=== PATIENT | male | born 1960 | race Caucasian/White ===

== ENCOUNTER 2019-05-16 07:56 | Day surgery (SDC) | payer BC ==
[2019-05-10 15:22] VITALS: BMI 28.8
[~2019-05-16 07:56] MED LIST: LACTATED RINGERS 1,000 ML IV SCH; LIDOCAINE 1% 20 ML VIAL (10MG/ML) FOR IV START INTRADERMA PRN
[2019-05-16 08:24] VITALS: RESP 16; TEMP 97.6
[2019-05-16] MEDS ORDERED: PROPOFOL 10 MG/ML 20 ML VIAL IV ONE (09:15)
--- NOTE | 2019-05-16 09:20 | P.GSHP ---
History of Present Illness H&P Date: 05/16/19 Chief Complaint: GI bleed This is a 59-year-old male presents today for colonoscopy. Patient has issues with GI bleed. He states he may have hemorrhoids. Past Medical History Past Medical History: GERD/Reflux, Hyperlipidemia, Hypertension Additional Past Medical History / Comment(s): TREMORS History of Any Multi-Drug Resistant Organisms: None Reported Past Surgical History: Coronary Bypass/CABG, Hernia Repair Additional Past Surgical History / Comment(s): QUAD. BYPASS ABOUT 11 YEARS AGO. VASECTOMY Past Anesthesia/Blood Transfusion Reactions: No Reported Reaction Smoking Status: Never smoker - Past Family History Father Additional Family Medical History / Comment(s): AT AGE 63 OF HEART ATTACK Medications and Allergies Home Medications Medication Instructions Recorded Confirmed Type Aspirin [Adult Low Dose Aspirin EC] 81 mg PO DAILY 05/10/19 05/16/19 History LORazepam [Ativan] 1 mg PO DAILY PRN 05/10/19 05/16/19 History Nadolol 40 mg PO DAILY 05/10/19 05/10/19 History Omeprazole 20 mg PO DAILY 05/10/19 05/10/19 History Sildenafil Citrate [Viagra] 50 mg PO ONCE PRN 05/10/19 05/16/19 History Simvastatin [Zocor] 20 mg PO DAILY 05/10/19 05/16/19 History amLODIPine BESYLATE 5 mg PO DAILY 05/10/19 05/16/19 History Allergies Allergy/AdvReac Type Severity Reaction Status Date / Time No Known Allergies Allergy Verified 05/10/19 15:09 Surgical - Exam Vital Signs Temp Pulse Resp BP Pulse Ox 97.6 F 47 L 16 172/97 96 05/16/19 08:18 05/16/19 08:18 05/16/19 08:18 05/16/19 08:18 05/16/19 08:18 - General well developed, well nourished, no distress - Eyes PERRL - ENT normal pinna - Neck no masses - Respiratory normal expansion - Cardiovascular Rhythm: regular - Abdomen Abdomen: soft, non tender Assessment and Plan Assessment: GI bleed. We'll perform colonoscopy.
--- NOTE | 2019-05-16 09:35 | P.OP ---
Date of Procedure: 05/16/19 Preoperative Diagnosis: GI bleed Postoperative Diagnosis: External hemorrhoids Left colon polyp Rectal polyp Procedure(s) Performed: Colonoscopy Anesthesia: MAC Surgeon: Lokesh Ferguson Pathology: other (Rectal polyp, left colon polyp) Condition: stable Disposition: PACU Description of Procedure: The patient's placed on the endoscopy table in the lateral position. He received IV sedation. Digital rectal exam was performed which revealed a few external hemorrhage. The flexible colonoscope was then placed patient anus passed rotator colon. The ileocecal valve sutures. The cecum appeared normal. The ascending colon appeared normal. The transverse colon as well. In the descending colon there was a peduncular polyp was removed with snare. The scope was brought back and the remainder of the descending colon and the sigmoid appeared normal. In the rectum there was a polyp seen this removed with snare and forcep. Scope was withdrawn from the patient in the anus there was some external hemorrhoids noted. There is no evidence of any active bleeding. It is presumed that his bleeding is due to his external hemorrhoids.
[2019-05-16 10:31] VITALS: BP 165/100; PULSE 53
== END 2019-05-16 10:42 | disposition home or self-care (01) ==
LOC: ORWHC2ENDO 07:56
PROVIDERS: ATTEND Surgery
DX: K64.4 Residual hemorrhoidal skin tags (principal); D12.4 Benign neoplasm of descending colon; D12.5 Benign neoplasm of sigmoid colon; D12.8 Benign neoplasm of rectum; E78.5 Hyperlipidemia, unspecified; I10 Essential (primary) hypertension; K21.9 Gastro-esophageal reflux disease without esophagitis; Z79.82 Long term (current) use of aspirin; Z95.1 Presence of aortocoronary bypass graft; Z79.899 Other long term (current) drug therapy
CPT/HCPCS: 88305; 45385; J2704

== ENCOUNTER → 2019-07-21 | Outpatient (CLI) | payer BC ==
--- NOTE | 2019-07-27 11:21 | CT ---
EXAMINATION TYPE: CT chest w con DATE OF EXAM: 07/21/2019 COMPARISON: 09/10/[address] chest HISTORY: pulmonary nodules CT DLP: 550.5 mGycm, Automated exposure control for dose reduction was used. CONTRAST: Performed injected with 100 mL of Isovue 300. TECHNIQUE: Axial images were obtained at 5 mm thick sections. Reconstructed images are reviewed on [employer] computer in the coronal plane. FINDINGS: Portion of the thyroid visualized is normal. No suspicious lung nodules or focal infiltrates are present. There is some pneumonitis changes at the left lung base. This appears improved from comparison. There is a 1.3 x 1.6 cm density in the posterior lateral left lung base which may have some central l ower density on previous appears to correspond to the region of a prior nodule which is smaller on th e current exam. Series 4 image 32. The frontal diagnosis could include atelectasis, soft tissue nodul e such as neoplasm, scarring. There is some mild pleural thickening along the inferolateral left base . No enlarged mediastinal or hilar adenopathy is evident. The ascending aorta diameter at the level o f the main pulmonary artery is 3.9 cm. The main pulmonary artery diameter at the bifurcation is 3.[address] sections are obtained through the upper abdomen. There is a 2.3 cm cyst in the posterior l ateral superior pole left kidney measuring 8 Hounsfield units. IMPRESSIONS: 1. 1.3 x 1.6 cm density may be a peripheral based density located at the previous abnormality on the 2009 comparison. This is smaller than prior.
== END | disposition home or self-care (01) ==
LOC: RADCTMAIN 16:23
PROVIDERS: ATTEND Internal Medicine Critical Care Medicine
DX: R91.1 Solitary pulmonary nodule (principal)
CPT/HCPCS: 71260; 36415; Q9967

== ENCOUNTER → 2021-09-01 | Outpatient (CLI) | payer BC ==
[2021-09-01 20:45] LABS: Luteinizing Hormone 3.7 mIU/mL; Prolactin 4.8 ng/mL (2.100-17.700); Prostate Specific Antigen 1.8 ng/mL (0.00-4.50)
== END | disposition home or self-care (01) ==
LOC: LABWHC1 12:07
PROVIDERS: ATTEND Urology
DX: R35.1 Nocturia (principal)
CPT/HCPCS: 36415; 83002; 84146; 84153; 84402; 84403

== ENCOUNTER → 2022-06-11 | Outpatient (CLI) | payer BC ==
--- NOTE | 2022-06-11 15:06 | XR ---
EXAMINATION TYPE: XR shoulder complete LT DATE OF EXAM: 06/11/2022 CLINICAL HISTORY: Pain. TECHNIQUE: Three views of the left shoulder are obtained. COMPARISON: None. FINDINGS: There is no acute fracture/dislocation evident in the left shoulder. Moderate to severe na rrowing with mild to moderate spurring at acromioclavicular joint. Mild to moderate narrowing and mi ld spurring at glenohumeral joint. Type III acromion with prominent spur from the inferior lateral as pect of the acromion. Partial visualization of post-CABG changes. IMPRESSION: As above.
== END | disposition home or self-care (01) ==
LOC: RADXRMAIN 14:41
PROVIDERS: ATTEND Internal Medicine
DX: M25.812 Other specified joint disorders, left shoulder (principal); M25.712 Osteophyte, left shoulder

== ENCOUNTER → 2024-01-20 | Outpatient (CLI) | payer MEDICARE ==
[2024-01-20 16:35] LABS: African American GFR (CKD) 80 (>60 ml/min/1.73 sqM); Blood Urea Nitrogen 18 mg/dL (9-20); Non-African American GFR(CKD) 69 (>60 ml/min/1.73 sqM)
[2024-01-20 19:34] LABS: HCT 38.7 % (39.0-53.0); Hypochromasia Moderate; MCH 27.1 pg (25.0-35.0); MCV 87.4 fL (80.0-100.0); Mean Platelet Volume 9.5; Platelet Count 232 k/uL (150-450); RBC 4.43 m/uL (4.30-5.90); RDW 15.2 % (11.5-15.5); WBC 4.9 k/uL (3.8-10.6)
[2024-01-20 19:36] LABS: ALT 18 U/L (4-49); AST 32 U/L (17-59); Albumin/Globulin Ratio 1.4; Alkaline Phosphatase 66 U/L (38-126); Anion Gap 5 mmol/L; Carbon Dioxide 24 mmol/L (22-30); Chloride 110 mmol/L (98-107); Globulin 2.9 g/dL; Glucose 100 mg/dL (74-99); Potassium 3.9 mmol/L (3.5-5.1); Sodium 139 mmol/L (137-145); Total Bilirubin 0.7 mg/dL (0.2-1.3); Total Protein 6.9 g/dL (6.3-8.2)
--- NOTE | 2024-01-21 08:09 | CT ---
EXAMINATION TYPE: CT iac w con DATE OF EXAM: 01/20/2024 COMPARISON: None HISTORY: hearing loss CT DLP: 332 mGycm Automated exposure control for dose reduction was used. CONTRAST: CT scan of the IACs is performed with IV Contrast, patient injected with 100 mL of Isovue 300. FINDINGS: The external auditory canals are patent bilaterally. Mastoid air cells show no evidence of abnormal opacification bilaterally. The middle ear ossicles are symmetric and unremarkable. There is no evidence of suspicious surrounding soft tissue density to suggest cholesteatoma. The scutum is preserved bilaterally. The cochlea and the semicircular canals are symmetric and unremarkable. Ves tibular aqueduct and internal carotid canal appear unremarkable. Temporomandibular joints are mainta ined bilaterally. IMPRESSION: No significant abnormality seen to account for patient's symptoms.
== END | disposition home or self-care (01) ==
LOC: RADCTMAIN 15:13
PROVIDERS: ATTEND Otolaryngology
DX: Z13.9 Encounter for screening, unspecified (principal); H91.90 Unspecified hearing loss, unspecified ear
CPT/HCPCS: 80053; 84443; 85027; 84403; 70481; 36415; Q9967

== ENCOUNTER 2024-07-19 13:04 | Emergency (ER) | payer MEDICARE ==
[2024-07-19 13:16] VITALS: RESP 16
--- NOTE | 2024-07-19 13:34 | ED ---
General Adult HPI - General Chief complaint: Extremity Injury, Upper Stated complaint: Foreign object in L hand Time Seen by Provider: 07/19/24 13:26 Source: patient, RN notes reviewed, old records reviewed Mode of arrival: ambulatory Limitations: no limitations - History of Present Illness Initial comments: 64-year-old male with fishhook to the left middle finger distal phalanx. This occurred just prior to arrival. Patient accidentally lodged a large fishing lure into his hand. He was able to cut the majority of the lure off. Patient requires tetanus prophylaxis - Related Data Home Medications Medication Instructions Recorded Confirmed Aspirin [Adult Low Dose Aspirin EC] 81 mg PO DAILY 05/10/19 05/16/19 LORazepam [Ativan] 1 mg PO DAILY PRN 05/10/19 05/16/19 Omeprazole 20 mg PO DAILY 05/10/19 05/10/19 Sildenafil Citrate [Viagra] 50 mg PO ONCE PRN 05/10/19 05/16/19 Simvastatin [Zocor] 20 mg PO DAILY 05/10/19 05/16/19 amLODIPine BESYLATE 5 mg PO DAILY 05/10/19 05/16/19 nadoloL [Nadolol] 40 mg PO DAILY 05/10/19 05/10/19 Previous Rx's Medication Instructions Recorded Cephalexin [Keflex] 500 mg PO Q6HR 20 Days #5 cap 07/19/24 Allergies Allergy/AdvReac Type Severity Reaction Status Date / Time No Known Allergies Allergy Verified 05/10/19 15:09 Review of Systems ROS Statement: Those systems with pertinent positive or pertinent negative responses have been documented in the HPI. ROS Other: All systems not noted in ROS Statement are negative. Past Medical History Past Medical History: GERD/Reflux, Hyperlipidemia, Hypertension Additional Past Medical History / Comment(s): TREMORS History of Any Multi-Drug Resistant Organisms: None Reported Past Surgical History: Coronary Bypass/CABG, Hernia Repair Additional Past Surgical History / Comment(s): QUAD. BYPASS ABOUT 11 YEARS AGO. VASECTOMY Past Anesthesia/Blood Transfusion Reactions: No Reported Reaction Past Psychological History: Anxiety Past Alcohol Use History: Occasional Past Drug Use History: None Reported - Past Family History Father Additional Family Medical History / Comment(s): AT AGE 63 OF HEART ATTACK General Exam Limitations: no limitations General appearance: alert, in no apparent distress Head exam: Present: atraumatic, normocephalic Eye exam: Present: normal appearance Neck exam: Present: normal inspection Respiratory exam: Present: normal lung sounds bilaterally Cardiovascular Exam: Present: regular rate, normal rhythm GI/Abdominal exam: Absent: distended Extremities exam: Present: other (Fishing hook in the left middle finger distal phalanx) Course Vital Signs 07/19/24 13:13 Temperature 97.6 F Pulse Rate 81 Respiratory 16 Rate Blood Pressure 139/81 O2 Sat by Pulse 100 Oximetry Procedures - Forgein Body Removal Soft Tissue Consent Obtained: verbal consent Site: hand Anesthetic Used: lidocaine 1% Amount (mLs): 3 Foreign Body Suspected: Fish Hook Foreign Body Removed: yes Foreign Body Removal Technique: Instrumentation Patient Tolerated Procedure: well Additional Comments: required small incision to remove fishhook Medical Decision Making - Medical Decision Making Was pt. sent in by a medical professional or institution (, [facility], [facility], urgent care, hospital, or fpc...) When possible be specific @ -No Did you speak to anyone other than the patient for history (EMS, parent, family, police, friend...)? What history was obtained from this source @ -No Did you review nursing and triage notes (agree or disagree)? Why? @ -I reviewed and agree with nursing and triage notes Were old charts reviewed (outside hosp., previous admission, EMS record, old EKG, old radiological studies, urgent care reports/EKG's, fpc records)? Report findings @ -No old charts were reviewed Differential Diagnosis: Foreign body left third digit, fishhook EKG interpreted by me (3pts min.). @ -As above X-rays interpreted by me (1pt min.). @ -None done CT interpreted by me (1pt min.). @ -None done U/S interpreted by me (1pt. min.). @ -None done What testing was considered but not performed or refused? (CT, X-rays, U/S, labs)? Why? @ -None What meds were considered but not given or refused? Why? @ -None Did you discuss the management of the patient with other professionals (professionals i.e. [facility], [facility], lab, RT, psych nurse, perinatal social worker, brand executive, teacher, chief innovation officer, case aide)? Give summary @ -No Was smoking cessation discussed for >3mins.? @ -No Was critical care preformed (if so, how long)? @ -No Were there social determinants of health that impacted care today? How? (Homelessness, low income, unemployed, alcoholism, drug addiction, transportation, low edu. Level, literacy, decrease access to med. care, nursing home, rehab)? @ -No Was there de-escalation of care discussed even if they declined (Discuss DNR or withdrawal of care, Hospice)? DNR status @ -No What co-morbidities impacted this encounter? (DM, HTN, Smoking, COPD, CAD, Cancer, CVA, ARF, Chemo, Hep., AIDS, mental health diagnosis, sleep apnea, morbid obesity)? @ -None Was patient admitted / discharged? Hospital course, mention meds given and route, prescriptions, significant lab abnormalities, going to OR and other pertinent info. @ -Albia removed, tetanus updated, prophylactic antibiotics initiated. Instructed to irrigate the puncture site after the foreign body was removed. I was able to cleanse the digit with chlorhexidine as well as the fishhook prior to removal. Undiagnosed new problem with uncertain prognosis? @ -No Drug Therapy requiring intensive monitoring for toxicity (Heparin, Nitro, Insulin, Cardizem)? @ -No Were any procedures done? @ -[Yes, foreign body removal Diagnosis/symptom? @Albia to the distal phalanx left third digit, removed Acute, or Chronic, or Acute on Chronic? @ -Acute Uncomplicated (without systemic symptoms) or Complicated (systemic symptoms)? @ -Default Side effects of treatment? @ -No Exacerbation, Progression, or Severe Exacerbation? @ -No Poses a threat to life or bodily function? How? (Chest pain, [place], [place], pneumonia, PE, COPD, DKA, ARF, appy, cholecystitis, CVA, Diverticulitis, Homicidal, Suicidal, threat to staff... and all critical care pts) @ -No Disposition Clinical Impression: Fish hook in finger Disposition: HOME SELF-CARE Condition: Good Instructions (If sedation given, give patient instructions): Puncture Wound (ED) Prescriptions: Cephalexin [Keflex] 500 mg PO Q6HR 20 Days #5 cap Is patient prescribed a controlled substance at d/c from ED?: No Referrals: None,Stated [Primary Care Provider] - 1-2 days Time of Disposition: 13:50
[2024-07-19] MEDS: CEPHALEXIN 500 MG CAP PO STA (13:35)
[2024-07-19] MEDS: LIDOCAINE 1% INJ 10MG/ML (20 ML MDV) SQ ONE (13:36)
[2024-07-19] MEDS: DIPH,PERTUS(ACELL)TETVAC-LF 0.5 ML VIAL IM ONE (13:36)
[2024-07-19 14:20] VITALS: BP 134/77; PULSE 80; TEMP 97.7
== END 2024-07-19 14:18 | disposition home or self-care (01) ==
LOC: EC 13:04
CPT/HCPCS: 10120; 90471; 90715; 99283